=== PATIENT | female | born 1955 | race Caucasian/White ===

== ENCOUNTER 2017-08-05 08:04 | Outpatient (CLI) | payer OTHER ==
[2017-08-05 08:50] LABS: Anion Gap 14 mmol/L (10-20); BUN (Urea Nitrogen) 14 mg/dL (9.8-20.1); Calc. Creatinine Clearance 0 mL/min (70-130); Calcium 10.6 mg/dL (7.8-10.44); Carbon Dioxide 27 mmol/L (23-31); Chloride 105 mmol/L (98-107); Estimated GFR-MDRD 82
--- NOTE | 2017-08-05 13:30 | RAD ---
IVP: HISTORY: Calculus to the ureter. COMPARISON: CT abdomen/pelvis from 02/13/2013. FINDINGS: An IVP was performed in the standard fashion. No suspicious calcifications were seen on the ccnp r adiograph. After the administration of contrast, there were symmetric bilateral prompt nephrograms. Contrast w as excreted into both renal collecting systems. There was no evidence of dilatation of the calyces of the kidney or of the ureters. Both ureters were seen in their entirety, without filling defects. The urinary bladder was unremarkable. No significant post void residual was present. IMPRESSION: Normal intravenous pyelogram. POS: [facility]
== END 2017-08-05 08:05 | disposition home or self-care (01) ==
LOC: RAD 08:04
PROVIDERS: ATTEND Urology
DX: N20.1 Calculus of ureter (principal)
CPT/HCPCS: 36415; 74410; 80048

== ENCOUNTER 2018-04-21 13:01 | Outpatient (CLI) | payer OTHER | END 2018-04-21 13:02 | disposition home or self-care (01) | LOC: BICULT 13:01 | PROVIDERS: ATTEND Urology | DX: Z87.442 Personal history of urinary calculi (principal); N20.0 Calculus of kidney; N28.1 Cyst of kidney, acquired | CPT/HCPCS: 76770 ==